=== PATIENT | female | born 1960 | race Hispanic/Latino ===

== ENCOUNTER 2019-05-30 13:19 | Outpatient (CLI) | payer OTHER ==
--- NOTE | 2019-05-30 13:31 | RAD ---
EXAM: Two views chest PROVIDED CLINICAL HISTORY: Endometrial cancer COMPARISON: 10/13/2014 FINDINGS: Cardiac and mediastinal silhouette appears within normal limits. Lungs appear free of significant opa city. No pleural fluid or pneumothorax apparent. IMPRESSION: No evidence for an acute cardiopulmonary process.
== END 2019-05-30 13:20 | disposition home or self-care (01) ==
LOC: BICRAD 13:19
PROVIDERS: ATTEND Obstetrics & Gynecology Gynecologic Oncology
DX: C54.1 Malignant neoplasm of endometrium (principal)
CPT/HCPCS: 71046

== ENCOUNTER 2022-02-08 08:41 | Outpatient (CLI) | payer BC | END 2022-02-08 08:42 | disposition home or self-care (01) | LOC: BICMAMMO 08:41 | PROVIDERS: ATTEND Nurse Practitioner Family | DX: Z12.31 Encounter for screening mammogram for malignant neoplasm of breast (principal); Z85.41 Personal history of malignant neoplasm of cervix uteri | CPT/HCPCS: 77063; 77067 ==